=== PATIENT | female | born 1955 | race Caucasian/White ===

== ENCOUNTER 2018-01-13 07:22 | Day surgery (SDC) | payer OTHER ==
[~2018-01-13] VITALS: Ht 157.5 cm; Wt 81.6 kg
[2018-01-13] MEDS: KETOROLAC 30 MG/ML VIAL ONE (09:36)
[2018-01-13] MEDS: LIDOCAINE 2% 100 MG/5 ML UJET TP ONE (09:41)
[2018-01-13] MEDS ORDERED: QUET200T PO (10:20)
[2018-01-13] MEDS ORDERED: SIMV40TA5 PO (10:21)
[2018-01-13] MEDS ORDERED: DULO60EC PO (10:21)
[2018-01-13] MEDS ORDERED: ATEN50TA8 PO (10:21)
[2018-01-13] MEDS ORDERED: CLOP75TA55 PO (10:21)
[2018-01-13] MEDS ORDERED: HYDR-3298 PO (10:21)
[2018-01-13] MEDS ORDERED: SYN.05 PO (10:22)
[2018-01-13] MEDS ORDERED: TRAZ-344 PO (10:23)
== END 2018-01-13 10:30 | disposition home or self-care (01) ==
LOC: MDS 07:22 → MMU 07:22 → MDS 10:30
PROVIDERS: ATTEND Internal Medicine Gastroenterology
DX: R19.5 Other fecal abnormalities (principal); F41.9 Anxiety disorder, unspecified; I10 Essential (primary) hypertension; E66.09 Other obesity due to excess calories; F32.9 Major depressive disorder, single episode, unspecified; M81.0 Age-related osteoporosis without current pathological fracture; M19.90 Unspecified osteoarthritis, unspecified site; M79.7 Fibromyalgia; Z79.899 Other long term (current) drug therapy; Z68.37 Body mass index [BMI] 37.0-37.9, adult; Z86.73 Personal history of transient ischemic attack (TIA), and cerebral infarction without residual deficits; Z98.890 Other specified postprocedural states; Z98.51 Tubal ligation status
CPT/HCPCS: 45378; J1885